=== PATIENT | female | born 1950 | race Caucasian/White ===

== ENCOUNTER 2017-03-11 02:43 | Emergency (ER) | payer MEDICARE, BC ==
[2009-09-11 00:04] VITALS: BP 126/57
[~2017-03-11] VITALS: Ht 154.9 cm; Wt 72.3 kg
[~2017-03-11 02:43] MED LIST: ASPIRIN E.C. 8181 MG PO; BETAPACE 120MG120 MG PO; CEPHALEXIN500 M1 PO; COUMADIN5 MG PO; CYCLOBENZAPRINE10 MG PO; DELSYM30 MG/5 ML PO; LORTAB 5/500 501 TAB PO; MASON NATURAL1000 M1 PO; NAPROSYN500 MG PO; NORCO 325 MG-51 TAB PO; PREDNISONE10 MG PO; PROVENTIL0.09 MG/A1 IH; VOLTAREN 75 DR75 MG PO; ZITHROMAX Z PA250 MG
[2017-03-11 02:50] VITALS: TEMP 97.9
[2017-03-11 03:15] LABS: HEMATOCRIT 40.4 % (37.0-47.0); HEMOGLOBIN 13.3 g/dl (12.5-16.0)
[2017-03-11 03:24] LABS: CALCIUM 9.6 mg/dL (8.4-10.2); CREATININE, serum 0.89 mg/dL (0.52-1.25); POTASSIUM 3.9 mmol/L (3.4-5.0)
[2017-03-11 03:43] VITALS: BP 136/83; PULSE 84
[2017-03-12] MEDS ORDERED: CEPHALEXIN500 M1 PO (16:29)
== END 2017-03-11 04:11 | disposition home or self-care (01) ==
LOC: COL.ER 02:43
PROVIDERS: Emergency Medicine
DX: T82.118A Breakdown (mechanical) of other cardiac electronic device, initial encounter (principal); Z45.018 Encounter for adjustment and management of other part of cardiac pacemaker; R00.2 Palpitations; I48.0 Paroxysmal atrial fibrillation

== ENCOUNTER 2017-03-12 12:53 | Day surgery (SDC) | payer MEDICARE, BC ==
[2009-09-11 00:04] VITALS: BP 126/57
[2017-03-12] VITALS (8 sets, daily range): BP systolic 99–145; BP diastolic 56–76; PULSE 60–65; TEMP 97.1
[~2017-03-12] VITALS: Ht 155 cm; Wt 71.8 kg
[2017-03-12 13:29] LABS: HEMATOCRIT 42.4 % (37.0-47.0); HEMOGLOBIN 14.1 g/dl (12.5-16.0); MEAN CELL VOLUME 93 fl (80.0-100.0); MEAN CORPUSCULAR HEMOGLOBIN 31 pg (27.0-31.0); MEAN CORPUSCULAR HGB CONC 33 g/dl (33.0-37.0); MEAN PLATELET VOLUME 10.3 fl (7.4-10.4); PLATELET COUNT 354 K/mm3 (130-400); RED BLOOD COUNT 4.58 M/mm3 (4.10-5.30); WHITE BLOOD COUNT 8.3 K/mm3 (4.8-10.8)
[2017-03-12 13:30] LABS: INR 1.2 (0.8-3.0); PROTHROMBIN TIME 13.2 SECONDS (9.7-12.8)
[2017-03-12 13:34] LABS: CALCIUM 9.5 mg/dL (8.4-10.2); CREATININE, serum 0.97 mg/dL (0.52-1.25); POTASSIUM 4.1 mmol/L (3.4-5.0)
[2017-03-12] MEDS ORDERED: CEPHALEXIN500 M1 PO (16:29)
== END 2017-03-12 18:30 ==
LOC: COL.CAR 12:53
PROVIDERS: Internal Medicine Cardiovascular Disease
DX: Z45.010 Encounter for checking and testing of cardiac pacemaker pulse generator [battery] (principal); I48.0 Paroxysmal atrial fibrillation; E78.5 Hyperlipidemia, unspecified
CPT/HCPCS: C1785; J0690; J2250; J3010; J7030

== ENCOUNTER → 2017-07-18 | Outpatient (CLI) | payer MEDICARE, BC ==
[~2017-07-18] MED LIST changes: +LIPITOR 10MG10 MG PO; +LOVAZA1 GM PO; +NORVASC2.5 MG PO
== END ==
LOC: COL.VAS 07:45
DX: Z01.89 Encounter for other specified special examinations (principal)

== ENCOUNTER 2017-07-24 06:56 | Day surgery (SDC) | payer MEDICARE, BC ==
[2009-09-11 00:04] VITALS: BP 126/57
[2017-07-24] VITALS (7 sets, daily range): BP systolic 110–168; BP diastolic 55–76; PULSE 60–66; TEMP 97.4
[~2017-07-24] VITALS: Ht 156.2 cm; Wt 75.0 kg
[~2017-07-24 06:56] MED LIST changes: -LIPITOR 10MG10 MG PO; -LOVAZA1 GM PO; -NORVASC2.5 MG PO
[2017-07-24 07:43] LABS: HEMATOCRIT 41.7 % (37.0-47.0); HEMOGLOBIN 13.5 g/dl (12.5-16.0); MEAN CELL VOLUME 97 fl (80.0-100.0); MEAN CORPUSCULAR HEMOGLOBIN 31 pg (27.0-31.0); MEAN CORPUSCULAR HGB CONC 32 g/dl (33.0-37.0); PLATELET COUNT 313 K/mm3 (130-400); RED BLOOD COUNT 4.32 M/mm3 (4.10-5.30); WHITE BLOOD COUNT 6.3 K/mm3 (4.8-10.8)
[2017-07-24 07:49] LABS: INR 1.1 (0.8-3.0); PROTHROMBIN TIME 12.3 SECONDS (9.7-12.8)
[2017-07-24 07:53] LABS: CALCIUM 9.6 mg/dL (8.4-10.2); CREATININE, serum 0.83 mg/dL (0.52-1.25); POTASSIUM 3.8 mmol/L (3.4-5.0)
[2017-07-24] MEDS ORDERED: LIPITOR 10MG10 MG PO (13:33)
[2017-07-24] MEDS ORDERED: LOVAZA1 GM PO (13:33)
[2017-07-24] MEDS ORDERED: NORVASC2.5 MG PO (13:34)
== END 2017-07-24 15:28 | disposition home or self-care (01) ==
LOC: COL.CAR 06:56
PROVIDERS: Internal Medicine Cardiovascular Disease
DX: I47.2 Ventricular tachycardia (principal); R94.39 Abnormal result of other cardiovascular function study; I48.0 Paroxysmal atrial fibrillation; I99.8 Other disorder of circulatory system; I65.22 Occlusion and stenosis of left carotid artery; Z95.0 Presence of cardiac pacemaker; M79.641 Pain in right hand
CPT/HCPCS: J1644; J2250; J3010; Q9967

== ENCOUNTER 2017-12-08 12:31 | Emergency (ER) | payer MEDICARE, BC ==
[2009-09-11 00:04] VITALS: BP 126/57
[~2017-12-08] VITALS: Ht 157.5 cm; Wt 72.7 kg
[~2017-12-08 12:31] MED LIST changes: +ADVIL200 MG PO; +LIPITOR 10MG10 MG PO; +LOVAZA1 GM PO; +NITRO-DUR0.6 MG/PAT TD; +NORVASC2.5 MG PO; +OMEGA-3 FISH1000 MG PO
[2017-12-08 12:46] VITALS: TEMP 98.2
[2017-12-08] MEDS ORDERED: NITRO-DUR0.4 MG/PAT TD (13:12)
[2017-12-08 13:31] LABS: BASO % 0.4 % (0.0-2.0); EOS # 0.2 (0.0-0.7); EOS % 2.2 % (0-4.0); GRAN # 4.1 (1.4-6.5); GRAN % 59.1 % (42.2-75.2); HEMOGLOBIN 14.6 g/dl (12.5-16.0); LYMPH # 2.1 (1.2-3.4); LYMPH % 30.5 % (20.0-51.0); MEAN CELL VOLUME 96 fl (80.0-100.0); MEAN CORPUSCULAR HEMOGLOBIN 31 pg (27.0-31.0); MEAN CORPUSCULAR HGB CONC 32 g/dl (33.0-37.0); MEAN PLATELET VOLUME 10.2 fl (7.4-10.4); MONO # 0.5 (0.1-0.6); MONO % 7.4 % (1.7-9.3); PLATELET COUNT 325 K/mm3 (130-400)
[2017-12-08 13:45] LABS: ALANINE AMINOTRANSFERASE 32 U/L (9-52); ALBUMIN 4.8 gm/dL (3.5-5.0); ALKALINE PHOSPHATASE 118 U/L (50-136); ANION GAP 12 mmol/L (7-16); AST,SGOT 30 U/L (15-37); BILIRUBIN,TOTAL 0.5 mg/dL (0.0-1.0); BLOOD UREA NITROGEN 19 mg/dL (7-17); CARBON DIOXIDE 26 mmol/L (22-30); CHLORIDE 103 mmol/L (98-107); CREATININE, serum 0.92 mg/dL (0.52-1.25); GLUCOSE 132 mg/dL (74-106); POTASSIUM 3.8 mmol/L (3.4-5.0); SODIUM 142 mmol/L (137-145); TOTAL PROTEIN 8.6 gm/dL (6.4-8.2)
[2017-12-08 13:59] LABS: TROPONIN-I < 0.012 ng/mL (0.000-0.034)
[2017-12-08] MEDS ORDERED: FISH OIL 1000MG1 CAP PO (15:02)
[2017-12-08] MEDS ORDERED: ELIQUIS 5MG PO (16:18)
[2017-12-08 16:33] VITALS: BP 114/58; PULSE 58
== END 2017-12-08 16:34 | disposition home or self-care (01) ==
LOC: COL.ER 12:31
PROVIDERS: Emergency Medicine
DX: I48.91 Unspecified atrial fibrillation (principal); Z95.0 Presence of cardiac pacemaker; Z90.49 Acquired absence of other specified parts of digestive tract; Z98.890 Other specified postprocedural states; Z79.82 Long term (current) use of aspirin
CPT/HCPCS: J2250; J3010; J7030

== ENCOUNTER 2018-05-30 09:33 | Emergency (ER) | payer MEDICARE, BC ==
[2009-09-11 00:04] VITALS: BP 126/57
[~2018-05-30] VITALS: Ht 157.5 cm; Wt 71.8 kg
[~2018-05-30 09:33] MED LIST changes: +ELIQUIS 5MG PO; +FISH OIL 1000MG1 CAP PO; +NITRO-DUR0.4 MG/PAT TD
[2018-05-30 09:47] VITALS: TEMP 97.4
[2018-05-30] MEDS ORDERED: NITRO-DUR0.2 MG/PAT TD (09:58)
[2018-05-30 10:04] LABS: BASO % 0.4 % (0.0-2.0); EOS # 0.2 (0.0-0.7); EOS % 2.5 % (0-4.0); GRAN # 4.4 (1.4-6.5); GRAN % 63.6 % (42.2-75.2); HEMATOCRIT 43.7 % (37.0-47.0); HEMOGLOBIN 14.5 g/dl (12.5-16.0); LYMPH # 1.8 (1.2-3.4); LYMPH % 25.5 % (20.0-51.0); MEAN CELL VOLUME 94 fl (80.0-100.0); MEAN CORPUSCULAR HEMOGLOBIN 31 pg (27.0-31.0); MEAN CORPUSCULAR HGB CONC 33 g/dl (33.0-37.0); MEAN PLATELET VOLUME 9.9 fl (7.4-10.4); MONO # 0.5 (0.1-0.6); MONO % 7.7 % (1.7-9.3); PLATELET COUNT 329 K/mm3 (130-400); RED BLOOD COUNT 4.67 M/mm3 (4.10-5.30)
[2018-05-30 11:01] LABS: ALBUMIN 4.4 gm/dL (3.5-5.0); BILIRUBIN,TOTAL 0.5 mg/dL (0.0-1.0); CALCIUM 9.3 mg/dL (8.4-10.2); POTASSIUM 4.1 mmol/L (3.4-5.0); TOTAL PROTEIN 8.2 gm/dL (6.4-8.2)
[2018-05-30 11:10] VITALS: BP 113/58; PULSE 60
== END 2018-05-30 11:15 | disposition home or self-care (01) ==
LOC: COL.ER 09:33
PROVIDERS: Emergency Medicine
DX: I48.91 Unspecified atrial fibrillation (principal); Z79.82 Long term (current) use of aspirin; Z98.890 Other specified postprocedural states
CPT/HCPCS: J2704; J7030

== ENCOUNTER → 2018-08-11 | Outpatient (CLI) | payer MEDICARE, BC ==
[~2018-08-11] MED LIST changes: +NITRO-DUR0.2 MG/PAT TD
== END ==
LOC: COL.VAS 14:17
DX: Z13.6 Encounter for screening for cardiovascular disorders (principal); M79.605 Pain in left leg; M79.672 Pain in left foot

== ENCOUNTER 2019-03-14 13:46 | Observation (INO) | payer MEDICARE, BC ==
[~2019-03-14] VITALS: Ht 154.9 cm; Wt 70.9 kg
[2019-03-14] MEDS ORDERED: ELIQUIS 5MG PO (13:52)
[2019-03-14 14:24] LABS: BASO % 0.3 % (0.0-2.0); EOS # 0.2 (0.0-0.7); EOS % 1.9 % (0-4.0); GRAN # 5.4 (1.4-6.5); GRAN % 68.3 % (42.2-75.2); HEMATOCRIT 37.5 % (37.0-47.0); HEMOGLOBIN 12.1 g/dl (12.5-16.0); LYMPH # 1.7 (1.2-3.4); LYMPH % 21.2 % (20.0-51.0); MEAN CELL VOLUME 97 fl (80.0-100.0); MEAN CORPUSCULAR HEMOGLOBIN 31 pg (27.0-31.0); MEAN CORPUSCULAR HGB CONC 32 g/dl (33.0-37.0); MEAN PLATELET VOLUME 9.7 fl (7.4-10.4); MONO # 0.6 (0.1-0.6); MONO % 7.8 % (1.7-9.3); PLATELET COUNT 292 K/mm3 (130-400); RED BLOOD COUNT 3.88 M/mm3 (4.10-5.30)
[2019-03-14 14:33] LABS: INR 1.3 (0.8-3.0); PROTHROMBIN TIME 14.8 SECONDS (9.7-12.8)
[2019-03-14 15:20] LABS: ALBUMIN 3.8 gm/dL (3.5-5.0); BILIRUBIN,TOTAL 0.5 mg/dL (0.0-1.0); CALCIUM 9.4 mg/dL (8.4-10.2); CREATININE, serum 0.92 (0.52-1.25); POTASSIUM 3.9 mmol/L (3.4-5.0); TOTAL PROTEIN 7.2 gm/dL (6.4-8.2)
[2019-03-14] MEDS ORDERED: LIPITOR 40MG TA40 MG PO (16:51)
[2019-03-14 17:57] VITALS: BP 109/41; PULSE 63; TEMP 97.6
--- NOTE | 2019-03-14 18:37 | NUR ---
Patient to room 326. Report from ER nurse. Patient inital & 5 page completed. Med rec up to date. Patient resting in bed. Denies pain. Dinner ordered. She denies nausea. She has surgical cap on to cover her bloody hair. Her laceration without active bleeding. Vss. Minimal needs a this time. Will report off to night nurse.
[2019-03-14 20:00] VITALS: BP 113/41; PULSE 61; TEMP 97.7
--- NOTE | 2019-03-14 20:00 | NUR ---
PATIENT IS A&O. VSS. PATIENT CONCERNED HER DIASTOLIC B/P IN THE 40'S. PATIENT HAS CONSISTANTLY IN THE 40-50'S DIASTOLIC ALL DAY. PATIENT HAS ONLY BEEN UP TO BATHROOM, OTHERWISE HAS BEEN SUPINE IN BED. NURSING EDUCATED PATIENT ABOUT HEAD INJURY, BLOOD LOSS, HYPOTENSION AND IS NOT CONCERNING AT THIS TIME. PATIENT ASYMPTOMATIC. ALL OTHER VSS. WILL MONITOR. NOTED 10CM LACERATION TO POSTERIOR HEAD WITH SUTURES. HAIR NET AND PAD UNDER HEAD. BLOOD IS DRIED IN HAIR. PATIENT WAS TAKING ELIQUIS FOR CARDIAC HX. PATIENT A-PACED IN THE 60-70'S ON TELE. HEAD TO TOE ASSESSMENT WNL. FAMILY AT BEDSIDE. PATIENT FINISHING SUPPER. NO OTHER NEEDS. CALL LIGHT IN REACH.
[2019-03-14 23:12] VITALS: BP 126/41; PULSE 61; TEMP 98.7
[2019-03-15 04:00] VITALS: BP 115/36; PULSE 61; TEMP 98.1
--- NOTE | 2019-03-15 04:45 | NUR ---
PATIENT AWAKE AND C/O NURSE PAIN IN RUE. PATIENT REPORTS THIS IS NOT NEW FOR HER AND REPORTS SHE GETS THIS "BURNING, TINGLING FEELING IN HER FINGERS IN BOTH ARMS FROM TIME TO TIME". ELEVATED RUE WITH PILLOW. PATIENT REPORTS SHE IS MORE COMFORTABLE. DAUGHTER AT BEDSIDE. PATIENT HASN'T SLEPT MUCH TONIGHT. NURSING ENCOURAGED PATIENT TO TRY AND REST. CALL LIGHT IN REACH.
--- NOTE | 2019-03-15 08:25 | NUR ---
Patient resting in bed. Her daughter at bedside. SHe is very concerned about getting her hair washed & cleaned up, she is also concerned about how much hair they may have cut when suturing. Will disicussed when hair can be washed with Dr. Jesus. Breakfast ordered, she denies nausea. Complaints of sorness post fall, her LUE & jaw are sore. Tele on VSS. Will monitor.
[2019-03-15 09:32] VITALS: BP 102/50; PULSE 60; TEMP 98.1
--- NOTE | 2019-03-15 11:08 | NUR ---
Patient resting in bed. Awaiting Xray. rounded & then she is ready to take a shower.
[2019-03-15 11:37] VITALS: BP 112/66; BP 115/35; PULSE 60; PULSE 71; TEMP 98; TEMP 98.5
--- NOTE | 2019-03-15 12:02 | NUR ---
Patient lives at home alone in [place], [place] and plans to return home upon discharge. 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 Patient has no durable medical equipment usage at this time, her primary care physician is Lexi Stone, and Dr. Quezada is her Radio News Writer, her pharmacy is [facility], and she does not have advance directives for healthcare completed at this time. Patient's children (Brad and Lainey "Lashon" are supportive of patient as needed.
--- NOTE | 2019-03-15 12:09 | NUR ---
Patient in shower. Family assisting
--- NOTE | 2019-03-15 14:34 | NUR ---
Patient just waiting for discharge. Awaiting radiology to ready xray
[2019-03-15 15:20] VITALS: BP 106/48; PULSE 60
--- NOTE | 2019-03-15 15:40 | NUR ---
Discharge orders obtained. We reviewed all discharge paperwork. We discussed follow up for suture removal. We discussed home medication list & medications to hold today. We reviewed Signs & symptoms to watch for and when to seek medical attention. patient will be staying with her daughter. Patient daughter taking her home with all belongings. Bhavya RAMIRES.
== END 2019-03-15 15:43 | disposition home or self-care (01) ==
LOC: COL.ER 13:46 → SURG 16:39
PROVIDERS: Emergency Medicine; ADMIT Surgery
DX: S01.01XA Laceration without foreign body of scalp, initial encounter (principal); W18.39XA Other fall on same level, initial encounter; Y93.01 Activity, walking, marching and hiking; Y92.009 Unspecified place in unspecified non-institutional (private) residence as the place of occurrence of the external cause; I48.91 Unspecified atrial fibrillation; Z79.82 Long term (current) use of aspirin; Z79.01 Long term (current) use of anticoagulants; Z79.899 Other long term (current) drug therapy; Z95.0 Presence of cardiac pacemaker; Z90.49 Acquired absence of other specified parts of digestive tract
CPT/HCPCS: G0378; J2060; J2405; J7030

== ENCOUNTER 2019-07-19 13:27 | Emergency (ER) | payer MEDICARE, BC ==
[2009-09-11 00:04] VITALS: BP 126/57
[~2019-07-19] VITALS: Ht 154.9 cm; Wt 69.1 kg
[~2019-07-19 13:27] MED LIST changes: +LIPITOR 40MG TA40 MG PO
[2019-07-19 13:42] VITALS: TEMP 98.3
[2019-07-19 14:04] LABS: BASO % 0.3 % (0.0-2.0); EOS # 0.2 (0.0-0.7); EOS % 2.2 % (0-4.0); GRAN # 5.1 (1.4-6.5); GRAN % 64.2 % (42.2-75.2); HEMATOCRIT 41.5 % (37.0-47.0); HEMOGLOBIN 13.2 g/dl (12.5-16.0); MEAN CELL VOLUME 93 fl (80.0-100.0); MEAN CORPUSCULAR HEMOGLOBIN 30 pg (27.0-31.0); MEAN CORPUSCULAR HGB CONC 32 g/dl (33.0-37.0); MEAN PLATELET VOLUME 9.8 fl (7.4-10.4); MONO # 0.6 (0.1-0.6); PLATELET COUNT 328 K/mm3 (130-400); RED BLOOD COUNT 4.47 M/mm3 (4.10-5.30); REDCELL DISTRIBUTION WIDTH-CV 13.8 % (11.5-14.5)
[2019-07-19 14:19] LABS: ALANINE AMINOTRANSFERASE 14 U/L (9-52); ALBUMIN 4.5 gm/dL (3.5-5.0); ALKALINE PHOSPHATASE 128 U/L (50-136); ANION GAP 8 mmol/L (7-16); AST,SGOT 34 U/L (15-37); BILIRUBIN,TOTAL 0.4 mg/dL (0.0-1.0); BLOOD UREA NITROGEN 21 mg/dL (7-17); CALCIUM 9.5 mg/dL (8.4-10.2); CARBON DIOXIDE 28 mmol/L (22-30); CHLORIDE 105 mmol/L (98-107); CREATININE, serum 0.88 (0.52-1.25); GLUCOSE 120 mg/dL (74-106); SODIUM 141 mmol/L (137-145)
[2019-07-19 14:33] LABS: TROPONIN-I < 0.012 ng/mL (0.000-0.035)
[2019-07-19 15:01] LABS: COLLECTION METHOD CLEAN CATCH
[2019-07-19 15:08] LABS: PH 7 (5-8); SQUAMOUS EPITHELIAL None Seen /hpf; URINE APPEARANCE Clear; URINE BACTERIA Rare /hpf; URINE BILIRUBIN Negative (NEGATIVE); URINE BLOOD Negative (NEGATIVE); URINE COLOR Straw; URINE GLUCOSE Negative (NEGATIVE); URINE KETONE Negative (NEGATIVE); URINE LEUKOCYTE ESTERASE Negative (NEGATIVE); URINE NITRATE Negative (NEGATIVE); URINE PROTEIN(semi-quant) Negative (NEGATIVE); URINE RBC 0-2 /hpf; URINE UROBILINOGEN Negative (NEGATIVE)
[2019-07-19 17:50] VITALS: BP 107/62; PULSE 74
== END 2019-07-19 17:50 | disposition home or self-care (01) ==
LOC: COL.ER 13:27
PROVIDERS: Emergency Medicine
DX: I48.91 Unspecified atrial fibrillation (principal); E78.5 Hyperlipidemia, unspecified; I10 Essential (primary) hypertension; Z95.0 Presence of cardiac pacemaker; Z79.82 Long term (current) use of aspirin; Z90.89 Acquired absence of other organs
CPT/HCPCS: J7030

== ENCOUNTER 2019-07-21 07:08 | Day surgery (SDC) | payer MEDICARE, BC ==
[2009-09-11 00:04] VITALS: BP 126/57
[2019-07-21] VITALS (8 sets, daily range): BP systolic 116–133; BP diastolic 57–76; PULSE 69–70; TEMP 98
[~2019-07-21] VITALS: Ht 155 cm; Wt 71.7 kg
[2019-07-21] MEDS ORDERED: ELIQUIS 5MG PO (07:26)
[2019-07-21 07:59] LABS: HEMATOCRIT 41.3 % (37.0-47.0); HEMOGLOBIN 13.3 g/dl (12.5-16.0); MEAN CELL VOLUME 92 fl (80.0-100.0); MEAN CORPUSCULAR HEMOGLOBIN 30 pg (27.0-31.0); MEAN CORPUSCULAR HGB CONC 32 g/dl (33.0-37.0); MEAN PLATELET VOLUME 10.1 fl (7.4-10.4); PLATELET COUNT 316 K/mm3 (130-400); RED BLOOD COUNT 4.48 M/mm3 (4.10-5.30)
[2019-07-21 08:04] LABS: INR 1.3 (0.8-3.0); PROTHROMBIN TIME 15.5 SECONDS (9.7-12.8)
[2019-07-21 08:06] LABS: PARTIAL THROMBOPLASTIN TIME 38.2 SECONDS (26.0-37.0)
[2019-07-21 08:08] LABS: CALCIUM 9.1 mg/dL (8.4-10.2); CREATININE, serum 0.76 (0.52-1.25); MAGNESIUM 1.9 mg/dL (1.6-2.3); POTASSIUM 4.3 mmol/L (3.4-5.0)
[2019-07-21 08:38] LABS: THYROID STIMULATING HORMONE 4.35 uIU/mL (0.465-4.680)
[2019-07-21] MEDS ORDERED: PROTONIX20 MG PO ×2 (09:03→10:03)
--- NOTE | 2019-07-21 09:27 | NUR ---
Cardioversion is complete. Pt remains in SR 60's. Pt is comfortable, p,w,d, resp reg and unlabored. pt is awake and alert. RT called for repeat EKG. WCTM.
--- NOTE | 2019-07-21 11:00 | NUR ---
Pt remains in NSR, she is ready to go home, iv dc'd, pt is dressed with no problem, ambulatory around rn station with steady gait, escorted pt to exit via wheelchair. daughter here to give patient a ride home.
== END 2019-07-21 11:15 | disposition home or self-care (01) ==
LOC: COL.CAR 07:08
PROVIDERS: Internal Medicine Cardiovascular Disease
DX: I48.0 Paroxysmal atrial fibrillation (principal); K21.9 Gastro-esophageal reflux disease without esophagitis; I10 Essential (primary) hypertension; E78.2 Mixed hyperlipidemia; I49.5 Sick sinus syndrome; Z88.8 Allergy status to other drugs, medicaments and biological substances; Z82.49 Family history of ischemic heart disease and other diseases of the circulatory system
CPT/HCPCS: J2704; J7120

== ENCOUNTER 2020-03-23 07:17 | Day surgery (SDC) | payer MEDICARE, BC ==
[2009-09-11 00:04] VITALS: BP 126/57
[~2020-03-23] VITALS: Ht 154.9 cm; Wt 74.0 kg
[~2020-03-23 07:17] MED LIST changes: +FLEXERIL 1010 MG/TAB PO; +PROTONIX20 MG PO; +XALATAN EYE DROPS OD
[2020-03-23 07:46] VITALS: BP 117/68; PULSE 86; TEMP 98.1
[2020-03-23 08:31] LABS: HEMOGLOBIN 12.6 g/dl (12.5-16.0); MEAN CELL VOLUME 94 fl (80.0-100.0); MEAN CORPUSCULAR HEMOGLOBIN 31 pg (27.0-31.0); MEAN CORPUSCULAR HGB CONC 32 g/dl (33.0-37.0); MEAN PLATELET VOLUME 9.9 fl (7.4-10.4); PLATELET COUNT 344 K/mm3 (130-400); RED BLOOD COUNT 4.13 M/mm3 (4.10-5.30); REDCELL DISTRIBUTION WIDTH-CV 13.7 % (11.5-14.5)
[2020-03-23 08:36] LABS: INR 1.7 (0.8-3.0); PROTHROMBIN TIME 19.6 SECONDS (9.7-12.8)
[2020-03-23 08:38] LABS: PARTIAL THROMBOPLASTIN TIME 46.7 SECONDS (26.0-37.0)
[2020-03-23 09:02] LABS: CALCIUM 9.6 mg/dL (8.4-10.2); CREATININE, serum 0.9 (0.52-1.25)
[2020-03-23 09:10] VITALS: BP 104/53; PULSE 69
[2020-03-23 09:25] VITALS: BP 104/60; PULSE 69
[2020-03-23 09:33] LABS: THYROID STIMULATING HORMONE 3.69 uIU/mL (0.465-4.680)
--- NOTE | 2020-03-23 10:30 | NUR ---
Patient is stable, VS, cardioverted and post EKG confirms Sinus rythm, patient called for a ride to pick her up, IV removed, I will escort her out the door
== END 2020-03-23 11:35 | disposition home or self-care (01) ==
LOC: COL.CAR 07:17
PROVIDERS: Internal Medicine Cardiovascular Disease
DX: I48.0 Paroxysmal atrial fibrillation (principal); E78.5 Hyperlipidemia, unspecified; F41.9 Anxiety disorder, unspecified; G89.29 Other chronic pain; I48.91 Unspecified atrial fibrillation; M19.90 Unspecified osteoarthritis, unspecified site; K21.9 Gastro-esophageal reflux disease without esophagitis; Z95.0 Presence of cardiac pacemaker; Z79.01 Long term (current) use of anticoagulants; Z79.82 Long term (current) use of aspirin; Z88.8 Allergy status to other drugs, medicaments and biological substances
CPT/HCPCS: J2704

== ENCOUNTER 2021-01-01 11:18 | Inpatient (IN) | payer MEDICARE, BC ==
[~2021-01-01] VITALS: Ht 152.4 cm; Wt 72.7 kg
[2021-01-01] VITALS (466 sets, daily range): BP systolic 109–111; BP diastolic 60–77; PULSE 75–123; TEMP 98–98.5; O2SAT 76–100
[2021-01-01 11:44] LABS: BASO % 0.3 % (0.0-2.0); EOS # 0.2 (0.0-0.7); EOS % 2.9 % (0-4.0); GRAN # 4.7 (1.4-6.5); GRAN % 65.7 % (42.2-75.2); HEMATOCRIT 40.4 % (37.0-47.0); HEMOGLOBIN 12.6 g/dl (12.5-16.0); LYMPH # 1.7 (1.2-3.4); LYMPH % 24.2 % (20.0-51.0); MEAN CELL VOLUME 92 fl (80.0-100.0); MEAN CORPUSCULAR HEMOGLOBIN 29 pg (27.0-31.0); MEAN CORPUSCULAR HGB CONC 31 g/dl (33.0-37.0); MEAN PLATELET VOLUME 9.4 fl (7.4-10.4); MONO # 0.5 (0.1-0.6); MONO % 6.6 % (1.7-9.3); PLATELET COUNT 386 K/mm3 (130-400); RED BLOOD COUNT 4.41 M/mm3 (4.10-5.30)
[2021-01-01 11:56] LABS: ALANINE AMINOTRANSFERASE 18 U/L (4-34); ALBUMIN 4.4 gm/dL (3.5-5.0); ALKALINE PHOSPHATASE 140 U/L (50-136); ANION GAP 9 mmol/L (7-16); AST,SGOT 33 U/L (15-37); BILIRUBIN,TOTAL 0.3 mg/dL (0.0-1.0); BLOOD UREA NITROGEN 21 mg/dL (7-17); CALCIUM 9.6 mg/dL (8.4-10.2); CARBON DIOXIDE 26 mmol/L (22-30); CHLORIDE 107 mmol/L (98-107); CREATININE, serum 1.01 (0.52-1.25); GLUCOSE 120 mg/dL (74-106); POTASSIUM 4.3 mmol/L (3.4-5.0); SODIUM 141 mmol/L (137-145); TOTAL PROTEIN 8.5 gm/dL (6.4-8.2)
[2021-01-01 11:57] LABS: COLLECTION METHOD CLEAN CATCH
[2021-01-01 12:05] LABS: PH 7 (5-8); SQUAMOUS EPITHELIAL 0-2 /hpf; URINE APPEARANCE Clear; URINE BACTERIA Rare /hpf; URINE BILIRUBIN Negative (NEGATIVE); URINE BLOOD 1+ (NEGATIVE); URINE COLOR Straw; URINE GLUCOSE Negative (NEGATIVE); URINE KETONE Negative (NEGATIVE); URINE LEUKOCYTE ESTERASE Negative (NEGATIVE); URINE NITRATE Negative (NEGATIVE); URINE PROTEIN(semi-quant) Negative (NEGATIVE); URINE RBC 0-2 /hpf; URINE UROBILINOGEN Negative (NEGATIVE)
[2021-01-01 12:09] LABS: TROPONIN-I < 0.012 ng/mL (0.000-0.035)
--- NOTE | 2021-01-01 13:18 | NUR ---
No heartbeat detected and verified with two RNs. Family notified of patients . Hospitalist aware.
[2021-01-01] MEDS ORDERED: VITAMIN D31000 IU PO (13:24)
[2021-01-01] MEDS ORDERED: LIPITOR 40MG TA40 MG PO (13:25)
--- NOTE | 2021-01-01 14:15 | NUR ---
Patient arrived to the unit from the ER. Patient alert and oriented and in no distress. Attached to all monitors. Call light left within reach.
--- NOTE | 2021-01-01 14:54 | NUR ---
Called Dr. Clemente to discuss plan of care. Will Administer 1 liter NS and give PO sotalol. Will attempt to titrate off esmolol if possible. Will aim to keep HR less than 130.
[2021-01-02] VITALS (304 sets, daily range): BP systolic 107–160; BP diastolic 51–106; PULSE 69–114; TEMP 98–98.1; O2SAT 89–100
[2021-01-02 05:20] LABS: BASO % 0.3 % (0.0-2.0); EOS # 0.1 (0.0-0.7); GRAN # 4.1 (1.4-6.5); GRAN % 57.5 % (42.2-75.2); HEMATOCRIT 38.7 % (37.0-47.0); HEMOGLOBIN 11.9 g/dl (12.5-16.0); LYMPH # 2.2 (1.2-3.4); LYMPH % 31.9 % (20.0-51.0); MEAN CELL VOLUME 93 fl (80.0-100.0); MEAN CORPUSCULAR HEMOGLOBIN 29 pg (27.0-31.0); MEAN CORPUSCULAR HGB CONC 31 g/dl (33.0-37.0); MEAN PLATELET VOLUME 9.8 fl (7.4-10.4); MONO # 0.6 (0.1-0.6); PLATELET COUNT 347 K/mm3 (130-400); RED BLOOD COUNT 4.16 M/mm3 (4.10-5.30); REDCELL DISTRIBUTION WIDTH-CV 14.2 % (11.5-14.5)
[2021-01-02 05:37] LABS: CALCIUM 8.8 mg/dL (8.4-10.2); CREATININE, serum 0.86 (0.52-1.25); POTASSIUM 3.8 mmol/L (3.4-5.0)
--- NOTE | 2021-01-02 07:30 | NUR ---
Patient awake and resting in bed. Alert and oriented X4 and in no distress. Call light left within reach.
--- NOTE | 2021-01-02 09:59 | NUR ---
Dr. Quezada at bedside to discuss cardioversion with patient.
--- NOTE | 2021-01-02 10:13 | NUR ---
Anesthesia at bedside discussing plan of care with patient.
--- NOTE | 2021-01-02 10:24 | NUR ---
Patient shocked with 120 J at 1024. Tolerated well with 1 shock. Tiara Carroll. Will continue to monitor.
[2021-01-02] MEDS ORDERED: BETAPACE 80MG80 MG PO ×3 (11:18→11:21)
--- NOTE | 2021-01-02 11:27 | NUR ---
Black Powder Glazing Operator met with patient to discuss discharge planning. Patient lives alone in [place] and sees Dr. Bang for primary care. Patient obtains medications from [facility] with no difficulties. Patient does not use any DME and is independent with ADLS. [facility] does not have Advance Directives and is not interested in designating DPOA-HC at this time. Patient has three children: Lainey (ph#[phone]), Brad (ph#[phone]), and Zia. Patient plans to return home upon discharge with Lainey providing transportation.
--- NOTE | 2021-01-02 12:35 | NUR ---
Patient discharged from unit via wheelchair. Patient alert and oriented and in no distress upon discharge.
== END 2021-01-02 12:40 | disposition home or self-care (01) | DRG 310 ==
LOC: COL.ER 11:18 → ICU 13:19
PROVIDERS: Emergency Medicine
PROC: 5A2204Z Restoration of Cardiac Rhythm, Single (ICD-10-PCS; principal; 2021-01-01)
DX: I48.0 Paroxysmal atrial fibrillation (principal); I10 Essential (primary) hypertension; I25.10 Atherosclerotic heart disease of native coronary artery without angina pectoris; Z79.01 Long term (current) use of anticoagulants; Z90.49 Acquired absence of other specified parts of digestive tract; Z79.82 Long term (current) use of aspirin; Z95.0 Presence of cardiac pacemaker
CPT/HCPCS: 99222-AI; 99239; J2704; J7030

== ENCOUNTER 2021-04-08 07:42 | Emergency (ER) | payer MEDICARE, BC ==
[~2021-04-08] VITALS: Ht 152.4 cm; Wt 74.1 kg
[~2021-04-08 07:42] MED LIST changes: +BETAPACE 80MG80 MG PO; +VITAMIN D31000 IU PO
[2021-04-08 07:54] VITALS: TEMP 97.1
[2021-04-08 08:36] LABS: BASO % 0.3 % (0.0-2.0); EOS # 0.1 (0.0-0.7); EOS % 1.6 % (0-4.0); GRAN % 64.2 % (42.2-75.2); HEMATOCRIT 40.5 % (37.0-47.0); HEMOGLOBIN 12.7 g/dl (12.5-16.0); LYMPH # 1.6 (1.2-3.4); MEAN CELL VOLUME 92 fl (80.0-100.0); MEAN CORPUSCULAR HEMOGLOBIN 29 pg (27.0-31.0); MEAN CORPUSCULAR HGB CONC 31 g/dl (33.0-37.0); MEAN PLATELET VOLUME 9.9 fl (7.4-10.4); MONO # 0.5 (0.1-0.6); MONO % 8.6 % (1.7-9.3); PLATELET COUNT 315 K/mm3 (130-400); REDCELL DISTRIBUTION WIDTH-CV 14.2 % (11.5-14.5)
[2021-04-08 08:40] LABS: INR 1.3 (0.8-3.0); PROTHROMBIN TIME 14.3 SECONDS (9.7-12.8)
[2021-04-08 08:43] LABS: PARTIAL THROMBOPLASTIN TIME 40.1 SECONDS (26.0-37.0)
[2021-04-08 08:44] LABS: ALANINE AMINOTRANSFERASE 19 U/L (4-34); ALBUMIN 4.1 gm/dL (3.5-5.0); ALKALINE PHOSPHATASE 144 U/L (50-136); ANION GAP 5 mmol/L (7-16); AST,SGOT 32 U/L (15-37); BILIRUBIN,TOTAL 0.6 mg/dL (0.0-1.0); BLOOD UREA NITROGEN 19 mg/dL (7-17); CALCIUM 9.5 mg/dL (8.4-10.2); CARBON DIOXIDE 28 mmol/L (22-30); CHLORIDE 110 mmol/L (98-107); CREATININE, serum 0.89 (0.52-1.25); GLUCOSE 108 mg/dL (74-106); POTASSIUM 3.8 mmol/L (3.4-5.0); SODIUM 143 mmol/L (137-145); TOTAL PROTEIN 7.7 gm/dL (6.4-8.2)
[2021-04-08 09:01] LABS: TROPONIN-I < 0.012 ng/mL (0.000-0.035)
[2021-04-08 13:00] VITALS: BP 110/58; PULSE 69
== END 2021-04-08 13:00 | disposition home or self-care (01) ==
LOC: COL.ER 07:42
PROVIDERS: Family Medicine
DX: I48.20 Chronic atrial fibrillation, unspecified (principal); Z98.61 Coronary angioplasty status; Z95.0 Presence of cardiac pacemaker; Z88.8 Allergy status to other drugs, medicaments and biological substances; Z79.01 Long term (current) use of anticoagulants; Z79.82 Long term (current) use of aspirin
CPT/HCPCS: J2704; J3475; J7030

== ENCOUNTER 2021-11-06 12:09 | Emergency (ER) | payer MEDICARE, BC ==
[~2021-11-06] VITALS: Ht 152.4 cm; Wt 70.5 kg
[2021-11-06 12:18] VITALS: TEMP 97.5
[2021-11-06 12:54] LABS: BASO % 0.4 % (0.0-2.0); EOS # 0.2 K/mm3 (0.0-0.7); GRAN # 4.5 K/mm3 (1.4-6.5); GRAN % 61.8 % (42.2-75.2); HEMATOCRIT 34.8 % (37.0-47.0); HEMOGLOBIN 10.7 g/dl (12.5-16.0); LYMPH # 1.9 K/mm3 (1.2-3.4); LYMPH % 26.1 % (20.0-51.0); MEAN CELL VOLUME 86 fl (80.0-100.0); MEAN CORPUSCULAR HEMOGLOBIN 26 pg (27-31); MEAN CORPUSCULAR HGB CONC 31 g/dl (33.0-37.0); MEAN PLATELET VOLUME 10.1 fl (7.4-10.4); MONO # 0.7 K/mm3 (0.1-0.6); MONO % 9.4 % (1.7-9.3); PLATELET COUNT 412 K/mm3 (130-400); RED BLOOD COUNT 4.05 M/mm3 (4.10-5.30); REDCELL DISTRIBUTION WIDTH-CV 14.1 % (11.5-14.5)
[2021-11-06 13:04] LABS: ALANINE AMINOTRANSFERASE 18 U/L (0-55); ALBUMIN 3.9 gm/dL (3.4-4.8); ALKALINE PHOSPHATASE 136 U/L (40-150); ANION GAP 10 mmol/L (7-16); AST,SGOT 21 U/L (5-34); BILIRUBIN,TOTAL 0.5 mg/dL (0.2-1.2); BLOOD UREA NITROGEN 21 mg/dL (10-20); CALCIUM 9.4 mg/dL (8.4-10.2); CARBON DIOXIDE 24 mmol/L (23-31); CHLORIDE 107 mmol/L (98-107); CREATININE, serum 1.06 mg/dL (0.57-1.11); GLUCOSE 95 mg/dL (70-99); POTASSIUM 4.3 mmol/L (3.5-4.5); SODIUM 141 mmol/L (136-145); TOTAL PROTEIN 7.9 gm/dL (6.2-8.1)
[2021-11-06 13:12] LABS: TROPONIN-I < 0.010 ng/mL (0.00-0.033)
[2021-11-06 14:58] VITALS: BP 103/48; PULSE 78
== END 2021-11-06 15:13 | disposition home or self-care (01) ==
LOC: COL.ER 12:09
PROVIDERS: Student in an Organized Health Care Education/Training Program
DX: I48.20 Chronic atrial fibrillation, unspecified (principal); Z95.0 Presence of cardiac pacemaker; Z98.61 Coronary angioplasty status; Z79.01 Long term (current) use of anticoagulants; Z79.82 Long term (current) use of aspirin; Z79.899 Other long term (current) drug therapy
CPT/HCPCS: J2250; J3010

== ENCOUNTER 2022-01-24 00:37 | Emergency (ER) | payer MEDICARE, BC ==
[~2022-01-24] VITALS: Ht 154.9 cm; Wt 81.8 kg
[2022-01-24 00:48] VITALS: TEMP 98
[2022-01-24 01:17] LABS: BASO % 0.4 % (0.0-2.0); EOS # 0.2 K/mm3 (0.0-0.7); GRAN # 3.6 K/mm3 (1.4-6.5); GRAN % 53.5 % (42.2-75.2); LYMPH # 2.2 K/mm3 (1.2-3.4); LYMPH % 33.2 % (20.0-51.0); MEAN CELL VOLUME 80 fl (80.0-100.0); MEAN CORPUSCULAR HGB CONC 30 g/dl (33.0-37.0); MEAN PLATELET VOLUME 9.9 fl (7.4-10.4); MONO # 0.7 K/mm3 (0.1-0.6); MONO % 9.6 % (1.7-9.3); PLATELET COUNT 389 K/mm3 (130-400); RED BLOOD COUNT 3.81 M/mm3 (4.10-5.30); REDCELL DISTRIBUTION WIDTH-CV 15.5 % (11.5-14.5)
[2022-01-24 01:18] LABS: HEMATOCRIT 30.6 % (37.0-47.0); HEMOGLOBIN 9.1 g/dl (12.5-16.0); MEAN CORPUSCULAR HEMOGLOBIN 24 pg (27-31)
[2022-01-24 01:33] LABS: ALANINE AMINOTRANSFERASE 17 U/L (0-55); ALBUMIN 3.9 gm/dL (3.4-4.8); ALKALINE PHOSPHATASE 103 U/L (40-150); ANION GAP 11 mmol/L (7-16); AST,SGOT 23 U/L (5-34); BILIRUBIN,TOTAL 0.4 mg/dL (0.2-1.2); BLOOD UREA NITROGEN 21 mg/dL (10-20); CALCIUM 9.4 mg/dL (8.4-10.2); CARBON DIOXIDE 24 mmol/L (23-31); CHLORIDE 108 mmol/L (98-107); GLUCOSE 104 mg/dL (70-99); POTASSIUM 3.9 mmol/L (3.5-4.5); SODIUM 143 mmol/L (136-145); TOTAL PROTEIN 7.2 gm/dL (6.2-8.1)
[2022-01-24 01:42] LABS: TROPONIN-I < 0.010 ng/mL (0.00-0.033)
[2022-01-24 02:55] VITALS: BP 133/98; PULSE 69
== END 2022-01-24 03:01 | disposition home or self-care (01) ==
LOC: COL.ER 00:37
PROVIDERS: Nurse Practitioner
DX: I48.91 Unspecified atrial fibrillation (principal); Z95.0 Presence of cardiac pacemaker; Z98.61 Coronary angioplasty status; Z79.01 Long term (current) use of anticoagulants
CPT/HCPCS: J2704

== ENCOUNTER 2022-04-24 07:37 | Day surgery (SDC) | payer MEDICARE, BC ==
[2009-09-11 00:04] VITALS: BP 126/57
[~2022-04-24] VITALS: Ht 152.4 cm; Wt 74.3 kg
[2022-04-24] MEDS ORDERED: BETAPACEAF120 PO (07:49)
[2022-04-24 08:06] VITALS: BP 152/66; PULSE 81; TEMP 98.7
[2022-04-24 09:35] VITALS: BP 112/53; PULSE 72; TEMP 97.8
--- NOTE | 2022-04-24 09:35 | NUR ---
The patient arrived back to [place] [facility] from the endoscopy suite at this time. The patient appears alert and oriented and ambulated from the cart to the recliner in her room with the stand by assistance of one nurse and appeared to tolerate the activity well. Post procedure vital signs were started at this time. The patient agrees to try some sprite at this time. Daughter at bedside. Call light is within reach. Fresh warm blanket provided. The patient denies any further needs at this time.
[2022-04-24 09:50] VITALS: BP 116/55; PULSE 70
--- NOTE | 2022-04-24 09:55 | NUR ---
The patient appears to be tolerating the sprite well. Dr. Sanchez is at the patient's bedside to discuss the findings of the procedure with the patient and her family.
[2022-04-24 10:05] VITALS: BP 130/57; PULSE 73
--- NOTE | 2022-04-24 10:05 | NUR ---
The patient's IV to her right anecubital was removed and a pressure dressing was applied to the site. The nurse instructed the patient to get dressed and notify the staff when she is ready to review her discharge paperwork.
--- NOTE | 2022-04-24 10:10 | NUR ---
Discharge instructions were reviewed with the patient and her daughter at this time. They both verbalized understanding and have no questions for the nurse at this time.
--- NOTE | 2022-04-24 10:15 | NUR ---
The patient was escorted out via wheelchair to a private vehicle by KIARA Valerio. The patient's belongings and discharge paperwork were sent with her. The patient's daughter is present to drive her home.
== END 2022-04-24 10:15 | disposition home or self-care (01) ==
LOC: SDCO 07:37
DX: Z12.11 Encounter for screening for malignant neoplasm of colon (principal); K64.0 First degree hemorrhoids
CPT/HCPCS: J2704; J7030

== ENCOUNTER 2024-08-01 10:36 | Emergency (ER) | payer MEDICARE, BC ==
[~2024-08-01] VITALS: Ht 165.1 cm; Wt 72.7 kg
[~2024-08-01 10:36] MED LIST changes: +BETAPACEAF120 PO
[2024-08-01 10:56] VITALS: TEMP 98
[2024-08-01] MEDS ORDERED: NORCO 325 MG-51 TAB PO (13:39)
[2024-08-01 14:11] VITALS: BP 125/71; PULSE 70
== END 2024-08-01 14:12 | disposition home or self-care (01) ==
LOC: COL.ER 10:36
DX: S83.91XA Sprain of unspecified site of right knee, initial encounter (principal); W01.0XXA Fall on same level from slipping, tripping and stumbling without subsequent striking against object, initial encounter